=== PATIENT | male | born 1990 | race Caucasian/White ===

== ENCOUNTER → 2020-09-15 08:47 | Outpatient (CLI) | payer OTHER, SELFPAY ==
--- NOTE | 2020-09-15 08:49 | DI.RAD.S_ITS ---
PROCEDURE: XR HAND RT MIN 3V INDICATIONS: distended finger TECHNIQUE: 3 views of the hand(s) acquired. COMPARISON: None. FINDINGS: Bones: There is a transversely oriented fracture of the proximal aspect of the distal phalanx of the 5th digit. Soft tissues: No suspicious soft tissue calcifications. IMPRESSION: 5th digit fracture. Dictated by: Poly Ramirez M.D. on 09/15/2020 at 9:24 Approved by: Poly Ramirez M.D. on 09/15/2020 at 9:27
== END ==
PROVIDERS: Family Provider Family Medicine; PCP Family Medicine; Referring Provider Physician Assistant; Visit Provider Physician Assistant
DX: S62.636A Displaced fracture of distal phalanx of right little finger, initial encounter for closed fracture (principal); W19.XXXA Unspecified fall, initial encounter
CPT/HCPCS: 73130

== ENCOUNTER 2020-10-20 20:46 | Emergency (ER) | payer OTHER, SELFPAY ==
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
[2020-10-20] MEDS: OXYCODONE/ACETAMINOPHEN 5/325 TABLET 1 TAB PO ×2 (21:44→23:37)
[2020-10-20] MEDS: IBUPROFEN 400 MG TABLET PO (23:38)
[2020-10-20] MEDS: BACITRACIN OINT 0.9 GM PCKT 5 APPLIC TOP (23:39)
[2020-10-20] MEDS: LIDO 1%/SOD BICARB 8.4% (10ML) 10 ML SYRINGE INJ (23:39)
[2020-10-20] MEDS: cephALEXin 250 MG CAPSULE 500 MG PO (23:47)
--- NOTE | 2020-10-21 00:14 | DI.RAD.S_ITS ---
PROCEDURE: XR FINGER RT MIN 2V INDICATIONS: post reduction TECHNIQUE: AP hand, 2 views of the 5th finger(s) acquired. COMPARISON: [facility], , XR FINGER RT MIN 2V, 10/20/2020, 21:26. FINDINGS: Bones: There has been interval reduction of subluxation at the proximal fracture site of the 5th distal phalanx. There is good anatomic alignment. No articular extension. Soft tissues: No suspicious soft tissue calcifications. Soft tissue edema at the DIP joint of the 5th digit is noted. IMPRESSION: Proximal distal 5th phalanx fracture with anatomic alignment. Dictated by: Hoda Machado M.D. on 10/21/2020 at 8:32 Approved by: Hoda Machado M.D. on 10/21/2020 at 8:33
[2020-10-21] MEDS: OXYCODONE/APAP 5/325 PREPACK 1 BOTTLE MISC (00:42)
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
== END 2020-10-21 00:59 | disposition home or self-care (01) ==
PROVIDERS: Emergency Provider Emergency Medicine; Family Provider Family Medicine; PCP Family Medicine
DX: S62.636B Displaced fracture of distal phalanx of right little finger, initial encounter for open fracture (principal); W19.XXXA Unspecified fall, initial encounter
CPT/HCPCS: 12001; 26755; 64450; 73140; 99283; 99284